=== PATIENT | female | born 1970 | race Caucasian/White ===

== ENCOUNTER 2016-12-25 15:43 | Outpatient (CLI) | payer OTHER | END 2016-12-25 15:44 | disposition home or self-care (01) | DX: R60.0 Localized edema (principal) ==

== ENCOUNTER 2021-08-13 11:17 | Inpatient (IN) | payer OTHER ==
[2021-08-13 11:45] LABS: BASOPHILS # (AUTO) 0.1 10^3/uL (0.0-0.1); BASOPHILS % (AUTO) 0.4 %; EOSINOPHILS % (AUTO) 0.1 %; HCT - HEMATOCRIT 46.6 % (37.0-47.0); HGB - HEMOGLOBIN 14.9 g/dL (12.0-16.0); LYMPHOCYTES # (AUTO) 2.7 10^3/uL (1.5-3.5); LYMPHOCYTES % (AUTO) 19.6 %; MEAN CORPUSCULAR HEMOGLOBIN 28.2 pg (27.0-31.0); MEAN CORPUSCULAR VOLUME 88.3 fL (81.0-99.0); MEAN PLATELET VOLUME 9.4 fL (7.9-10.8); MONOCYTES # (AUTO) 0.8 10^3/uL (0.0-1.0); MONOCYTES % (AUTO) 6.2 %; NEUTROPHILS % (AUTO) 73.4 %; PLT - PLATELET COUNT 340 10^3/uL (130-450); RED BLOOD COUNT 5.28 10^6/uL (4.20-5.40); RED CELL DISTRIBUTION WIDTH 14.8 % (12.0-15.0); WHITE BLOOD COUNT 13.6 x10^3/uL (4.8-10.8)
[2021-08-13 11:58] LABS: ALBUMIN 4.2 g/dL (3.2-5.5); ALBUMIN/GLOBULIN RATIO 1.1 (1.0-2.2); BILIRUBIN,TOTAL 0.7 mg/dL (0.2-1.0); CALCIUM 9.6 mg/dL (8.5-10.3); CREATININE 0.8 mg/dL (0.4-1.0); POTASSIUM 4.5 mmol/L (3.5-5.0)
[2021-08-13 12:14] LABS: BILIRUBIN,URINE NEGATIVE (NEGATIVE); GLUCOSE, URINE (UA) NEGATIVE (NEGATIVE); KETONES,URINE (UA) NEGATIVE (NEGATIVE); LEUKOCYTE ESTERASE, URINE TRACE (NEGATIVE); NITRITE,URINE NEGATIVE (NEGATIVE); OCCULT BLOOD,URINE NEGATIVE (NEGATIVE); PROTEIN,URINE TRACE mg/dL (NEGATIVE); UROBILINOGEN,URINE 0.2 (NORMAL) E.U./dL (NORMAL)
[2021-08-13] MEDS ORDERED: HYDROmorphone 1 MG/ML CARPUJECT IVP STA ×2 (12:18→14:29)
[2021-08-13] MEDS ORDERED: ONDANSETRON 4 MG/2 ML VIAL IVP STA ×2 (12:18→14:31)
[2021-08-13] MEDS ORDERED: SODIUM CHLORIDE 0.9% 1,000 ML IV STA ×2 (12:18→13:24)
[2021-08-13 12:20] LABS: CLARITY,URINE HAZY (CLEAR)
--- NOTE | 2021-08-13 12:21 | ED Physician Documentation ---
History of Present Illness - Stated complaint Stated Complaint: ABD PX/VOMITING - Chief complaint Chief Complaint: Abd Pain - Additonal information Additional information: 51-year-old female presents to the emergency department for evaluation of abdominal cramping and sharp pains. Reports that for at least 6 months that she gets cramping and pain in her abdomen especially she has not eaten. It is gotten progressively worse over the last few weeks. She will eat and then sometimes vomits. She reports that over the last 6 months she has gained about 60 pounds. Denies any history of diabetes. Past surgical history includes a mesh graft in her abdomen for a hernia repair. She denies hypertension tobacco use. Very rare alcohol use. Patient is traveling to [place] tomorrow and wants to know if it safe to travel. She takes an antidepressant as her only prescribed medication. Review of Systems Constitutional: denies: Fever, Chills, Weight Loss (60 pound weight gain) Eyes: reports: Reviewed and negative Nose: reports: Reviewed and negative Throat: reports: Reviewed and negative Cardiac: reports: Reviewed and negative Respiratory: reports: Reviewed and negative GI: reports: Abdominal Pain, Nausea, Vomiting. denies: Constipation, Diarrhea : reports: Reviewed and negative Skin: reports: Reviewed and negative PD PAST MEDICAL HISTORY - Allergies Allergies/Adverse Reactions: Allergies Allergy/AdvReac Type Severity Reaction Status Date / Time No Known Drug Allergies Allergy Verified 08/13/21 11:29 - Social History Does the pt smoke?: No Smoking Status: Never smoker PD ED PE EXPANDED - General General: Alert, No acute distress, Other (Morbidly obese) - Cardiac Cardiac: Regular Rate, Radial strong equal, Pedal strong equal, Cap refill < 2 sec. No: Murmur Present - Respiratory Respiratory: Clear to ausultation earnestine. No: Distress, Labored - Abdomen Abdomen: Tender to palpation (Tender to palpation in the right upper quadrant. No flank or CVA tenderness. Exam is limited by body habitus), Other (Patient has increased pain when laying supine). No: Rebound, Guarding - Derm Derm: Normal color, Warm and dry. No: Rash - Extremities Extremities: Normal. No: Deformity, Tenderness - Neuro Neuro: Alert and Oriented X 3, CNII-XII intact - GCS Eye Opening: Spontaneous Motor: Obeys Commands Verbal: Oriented Total: 15 Results - Vitals Vitals: Vital Signs - 24 hr 12/20/21 12/20/21 11:29 13:32 Temperature 36.5 C Heart Rate 89 78 Respiratory 16 19 Rate Blood Pressure 154/98 H 144/72 H O2 Saturation 94 98 Oxygen O2 Source Room air - Labs Labs: Laboratory Tests 08/13/21 08/13/21 08/13/21 11:40 11:40 11:40 WBC 13.6 H RBC 5.28 Hgb 14.9 Hct 46.6 MCV 88.3 MCH 28.2 MCHC 32.0 RDW 14.8 Plt Count 340 MPV 9.4 Neut # (Auto) 10.0 H Lymph # (Auto) 2.7 Emery # (Auto) 0.8 Eos # (Auto) 0.0 Baso # (Auto) 0.1 Absolute Nucleated RBC 0.00 Nucleated RBC % 0.0 Sodium 138 Potassium 4.5 Chloride 96 L Carbon Dioxide 28 Anion Gap 14.0 H BUN 15 Creatinine 0.8 Estimated GFR (MDRD) 75 L Glucose 134 H Calcium 9.6 Total Bilirubin 0.7 AST 25 ALT 20 Alkaline Phosphatase 94 Total Protein 8.0 Albumin 4.2 Globulin 3.8 Albumin/Globulin Ratio 1.1 Lipase 30 TSH 3.00 Urine Color Urine Clarity Urine pH Ur Specific [place] Urine Protein Urine Glucose (UA) Urine Ketones Urine Occult Blood Urine Nitrite Urine Bilirubin Urine Urobilinogen Ur Leukocyte Esterase Urine RBC Urine WBC Ur Squamous Epith Cells Urine Bacteria Urine Mucus Ur Microscopic Review Urine Culture Comments 08/13/21 12:00 WBC RBC Hgb Hct MCV MCH MCHC RDW Plt Count MPV Neut # (Auto) Lymph # (Auto) [place] # (Auto) Eos # (Auto) Baso # (Auto) Absolute Nucleated RBC Nucleated RBC % Sodium Potassium Chloride Carbon Dioxide Anion Gap BUN Creatinine Estimated GFR (MDRD) Glucose Calcium Total Bilirubin AST ALT Alkaline Phosphatase Total Protein Albumin Globulin Albumin/Globulin Ratio Lipase TSH Urine Color YELLOW Urine Clarity HAZY Urine pH 8.0 H Ur Specific [place] 1.020 Urine Protein TRACE Urine Glucose (UA) NEGATIVE Urine Ketones NEGATIVE Urine Occult Blood NEGATIVE Urine Nitrite NEGATIVE Urine Bilirubin NEGATIVE Urine Urobilinogen 0.2 (NORMAL) Ur Leukocyte Esterase TRACE H Urine RBC 0-5 Urine WBC 4-5 Ur Squamous Epith Cells MANY Squamous H Urine Bacteria Few Urine Mucus Few Strands Ur Microscopic Review INDICATED Urine Culture Comments NOT INDICATED - Rads (name of study) CT abd Radiology: Final report received (Small bowel obstruction. Proximal small bowel dilated to 3 and half centimeters, distal small bowel decompressed and focal transition in the anterior mid abdomen noted. Small hiatal hernia) PD MEDICAL DECISION MAKING - ED course Complexity details: reviewed results, re-evaluated patient, considered differential, d/w patient ED course: 51-year-old female presents to the emergency department for evaluation of worsening abdominal pain nausea and vomiting. Symptoms have been intermittent for about 6 months but acutely worse over the last 2 weeks. She reports that the pain gets especially severe if she has not eaten for a while. She is very tender when laying supine. She had screening labs that showed a very modest leukocytosis. No worrisome electrolyte abnormalities. A CT of the abdomen unfortunately shows a small bowel obstruction. This finding was discussed with Dr. Kimbrough who requested we place an NG tube. She will come and evaluate the patient. I discussed the plan and findings To warrant admission to the hospital with the patient. She is quite upset. She declines an NG tube. She believes that she cannot have a bowel obstruction as she has been having bowel movements. 1430: Patient seen by Dr. Ruffin. Patient now agrees to have an NG tube placed. I will order additional Dilaudid and Zofran for analgesia. Further care to be dictated by the surgical team. Departure - Departure Disposition: [facility] DC/Reba Clinical Impression: Small bowel obstruction
[2021-08-13] MEDS ORDERED: IOPAMIDOL-300 100 ML VIAL ONE (12:28)
[2021-08-13 12:31] LABS: BACTERIA,URINE Few /HPF (None Seen); MUCUS,URINE Few Strands; RBC,URINE 0-5 /HPF (0-5); SQUAMOUS EPITHELIAL CELL,UR MANY Squamous (<= Few)
[2021-08-13] MEDS ORDERED: IOPAMIDOL-300 100 ML VIAL IVP ONE (13:29)
--- NOTE | 2021-08-13 13:44 | CT Report ---
PROCEDURE: Abdomen/Pelvis W INDICATIONS: n/v; abd cramping;? alka CONTRAST: IV CONTRAST: Isovue 300 ml: 100 PO CONTRAST: Isovue 300 ml50 TECHNIQUE: After the administration of intravenous contrast, 5 mm thick sections acquired from the diaphragms to the symphysis. 5 mm thick coronal and sagittal reformats were acquired. For radiation dose reducti on, the following was used: automated exposure control, adjustment of mA and/or kV according to bernard ent size. COMPARISON: None. FINDINGS: Image quality: Excellent. ABDOMEN: Lung bases: Lung bases are clear. Heart size is normal. Small hiatal hernia noted. Solid organs: Liver and spleen are normal in size and enhancement. Gallbladder unremarkable. Bilia ry system is non dilated. Pancreas enhances normally. No adrenal nodules. Kidneys demonstrate norm al size and enhancement, without hydronephrosis. Peritoneum and bowel: Dilated proximal small bowel loops measuring up to 3.5 cm in diameter. Distal s mall bowel is completely decompressed, there is a focal transition noted in the anterior midabdomen, consistent with bowel obstruction. No evidence of bowel wall pneumatosis or free air. No free fluid. Nodes and vessels: No retroperitoneal or mesenteric adenopathy by size criteria. Aorta and inferior vena cava are normal in size. Miscellaneous: No ventral hernias. PELVIS: Genitourinary: Bladder wall thickness is normal. Miscellaneous: No inguinal hernias or adenopathy. Bones: No suspicious bony lesions. No vertebral body compression fractures. IMPRESSION: 1. Small bowel obstruction. Proximal small bowel dilated to 3.5 cm, distal small bowel decompressed, and focal transition in the anterior midabdomen noted. 2. Small hiatal hernia Reviewed by: Wilfredo May MD on 08/13/2021 12:43 PM [place] Approved by: Wilfredo May MD on 08/13/2021 12:43 PM [facility] Station ID: [id number]
--- NOTE | 2021-08-13 14:34 | SURGERY HX AND PHYSICAL(T) ---
Surgical History & Physical - Chief Complaint/HPI Chief Complaint: Abdominal pain and nausea History of Present Illness: Jaden is a 51-year-old lady who was in her usual state of health this morning when she developed severe abdominal pain in the midline right at the site of a prior hernia repair. She says that for the last 6 months she has had intermittent bouts of nausea and vomiting. She says these have been associated with a right upper quadrant cramping feeling but not with the tenderness that she currently appreciates. She has a history of having had a ventral hernia repair with mesh in the nineties. She experienced a small bowel obstruction following that procedure and some report of "popping a stitch".This was done at a hospital. At that time she had a very unpleasant experience with NG tube placement and so was very reticent to agree to NG tube placement today.She is also very hesitant to consider surgical intervention as she is scheduled to go to [place] tomorrow with her daughter.She tells me that she has a bowel movement every day and she had one in the middle of the night when she got up to go to the bathroom.The vomiting that she describes happens about once a week.She says that she has had a 60 pound weight gain in the last 6 months or so. She b lames this on Covid and being locked away. - PMH/PSH/Social Hx Does the pt have a hx of MRSA?: No Psychiatric: Depression General: Other (Ventral hernia repair in the nine) Smoking Status: Never smoker - Home Meds and Allergies Allergies/Adverse Reactions: Allergies Allergy/AdvReac Type Severity Reaction Status Date / Time No Known Drug Allergies Allergy Verified 08/13/21 11:29 - Review of Systems Constitutional: Fatigue Respiratory: No: Shortness of breath Gastrointestinal: Nausea, Vomiting, Abdominal pain. No: Diarrhea Gentinourinary: No: Dysuria - Vital Signs Heart Rate: 78 Blood Pressure: 144/72 Temperature: 36.5 C Respiratory Rate: 19 O2 Saturation: 98 Weight (kg): 147.5 kg Height: 1.78 m - Physical Exam General Appearance: positive: Alert, Mild distress Eyes Bilatera: positive: Normal inspection, PERRL, EOMI ENT: positive: ENT inspection nml Neck: positive: Nml inspection Respiratory: positive: Chest non-tender, No respiratory distress Cardiovascular: positive: Regular rate & rhythm Abdomen: positive: Tenderness, Other (Abdomen is rotund. In the midline there are multiple stab incisions consistent with history of mesh placement. This is in a little river roughly approximating the umbilicus.Tenderness to palpation directly over this site.The patient does not want to sit forward because she says it puts more pressure on). negative: Guarding, Rebound Skin: positive: Color nml Extremities: positive: Non-tender, No pedal edema Neurologic/Psychiatric: positive: Oriented x3 - Patient Review Patient Review: Problems were reviewed with the patient during this visit. Medications were reviewed with the patient during this visit. Allergies were reviewed this patient during this visit. Pertinent Tests Reviewed: All pertitent test for this patient were reviewed. - Assessment & Plan Assessment and Plan: PT NAME: TORSTEN PRATER MR#: [id number] REG ER/ED AGE: 51 CI DT/TM: 08/13/21 PCP: : 1970 ATT: SEX: F ORD: [facility] EXAM: [id number] CT/ABPEW ([id number]) PROCEDURE: Abdomen/Pelvis W INDICATIONS: n/v; abd cramping;? alka CONTRAST: IV CONTRAST: Isovue 300 ml: 100 PO CONTRAST: Isovue 300 ml50 TECHNIQUE: After the administration of intravenous contrast, 5 mm thick sections acquired from the diaphragms to the symphysis. 5 mm thick coronal and sagittal reformats were acquired. For radiation dose reduction, the following was used: automated exposure control, adjustment of mA and/or kV according to patient size. COMPARISON: None. FINDINGS: Image quality: Excellent. ABDOMEN: Lung bases: Lung bases are clear. Heart size is normal. Small hiatal hernia noted. Solid organs: Liver and spleen are normal in size and enhancement. Gallbladder unremarkable. Biliary system is non dilated. Pancreas enhances normally. No adrenal nodules. Kidneys demonstrate normal size and enhancement, without hydronephrosis. Peritoneum and bowel: Dilated proximal small bowel loops measuring up to 3.5 cm in diameter. Distal small bowel is completely decompressed, there is a focal transition noted in the anterior midabdomen, consistent with bowel obstruction. No evidence of bowel wall pneumatosis or free air. No free fluid. Nodes and vessels: No retroperitoneal or mesenteric adenopathy by size criteria. Aorta and inferior vena cava are normal in size. Miscellaneous: No ventral hernias. PELVIS: Genitourinary: Bladder wall thickness is normal. Miscellaneous: No inguinal hernias or adenopathy. Bones: No suspicious bony lesions. No vertebral body compression fractures. IMPRESSION: 1. Small bowel obstruction. Proximal small bowel dilated to 3.5 cm, distal small bowel decompressed, and focal transition in the anterior midabdomen noted. 2. Small hiatal hernia Lab Results x24hrs 08/13/21 08/13/21 08/13/21 12:00 11:40 11:40 WBC RBC Hgb Hct MCV MCH MCHC RDW Plt Count MPV Neut # (Auto) Lymph # (Auto) [place] # (Auto) Eos # (Auto) Baso # (Auto) Absolute Nucleated RBC Nucleated RBC % Sodium 138 mmol/L mmol/L (135-145) Potassium 4.5 mmol/L mmol/L (3.5-5.0) Chloride 96 mmol/L L mmol/L (101-111) Carbon Dioxide 28 mmol/L mmol/L (21-32) Anion Gap 14.0 H (6-13) BUN 15 mg/dL mg/dL (6-20) Creatinine 0.8 mg/dL mg/dL (0.4-1.0) Estimated GFR (MDRD) 75 L (>89) Glucose 134 mg/dL H mg/dL (70-100) Calcium 9.6 mg/dL mg/dL (8.5-10.3) Total Bilirubin 0.7 mg/dL mg/dL (0.2-1.0) AST 25 IU/L IU/L (10-42) ALT 20 IU/L IU/L (10-60) Alkaline Phosphatase 94 IU/L IU/L (42-121) Total Protein 8.0 g/dL g/dL (6.7-8.2) Albumin 4.2 g/dL g/dL (3.2-5.5) Globulin 3.8 g/dL g/dL (2.1-4.2) Albumin/Globulin Ratio 1.1 (1.0-2.2) Lipase 30 U/L U/L (22-51) TSH 3.00 uIU/mL uIU/mL (0.34-5.60) Urine Color YELLOW Urine Clarity HAZY (CLEAR) Urine pH 8.0 PH H PH (5.0-7.5) Ur Specific [place] 1.020 (1.002-1.030) Urine Protein TRACE mg/dL mg/dL (NEGATIVE) Urine Glucose (UA) NEGATIVE mg/dL mg/dL (NEGATIVE) Urine Ketones NEGATIVE mg/dL mg/dL (NEGATIVE) Urine Occult Blood NEGATIVE (NEGATIVE) Urine Nitrite NEGATIVE (NEGATIVE) Urine Bilirubin NEGATIVE (NEGATIVE) Urine Urobilinogen 0.2 (NORMAL) E.U./dL E.U./dL (NORMAL) Ur Leukocyte Esterase TRACE H (NEGATIVE) Urine RBC 0-5 /HPF /HPF (0-5) Urine WBC 4-5 /HPF /HPF (0-5) Ur Squamous Epith Cells MANY Squamous H (<= Few) Urine Bacteria Few /HPF /HPF (None Seen) Urine Mucus Few Strands Ur Microscopic Review INDICATED Urine Culture Comments NOT INDICATED 08/13/21 11:40 WBC 13.6 x10^3/uL H x10^3/uL (4.8-10.8) RBC 5.28 10^6/uL 10^6/uL (4.20-5.40) Hgb 14.9 g/dL g/dL (12.0-16.0) Hct 46.6 % % (37.0-47.0) MCV 88.3 fL fL (81.0-99.0) MCH 28.2 pg pg (27.0-31.0) MCHC 32.0 g/dL g/dL (32.0-36.0) RDW 14.8 % % (12.0-15.0) Plt Count 340 10^3/uL 10^3/uL (130-450) MPV 9.4 fL fL (7.9-10.8) Neut # (Auto) 10.0 10^3/uL H 10^3/uL (1.5-6.6) Lymph # (Auto) 2.7 10^3/uL 10^3/uL (1.5-3.5) Eagle # (Auto) 0.8 10^3/uL 10^3/uL (0.0-1.0) Eos # (Auto) 0.0 10^3/uL 10^3/uL (0.0-0.7) Baso # (Auto) 0.1 10^3/uL 10^3/uL (0.0-0.1) Absolute Nucleated RBC 0.00 x10^3/uL x10^3/uL Nucleated RBC % 0.0 /100WBC /100WBC Sodium Potassium Chloride Carbon Dioxide Anion Gap BUN Creatinine Estimated GFR (MDRD) Glucose Calcium Total Bilirubin AST ALT Alkaline Phosphatase Total Protein Albumin Globulin Albumin/Globulin Ratio Lipase TSH Urine Color Urine Clarity Urine pH Ur Specific [place] Urine Protein Urine Glucose (UA) Urine Ketones Urine Occult Blood Urine Nitrite Urine Bilirubin Urine Urobilinogen Ur Leukocyte Esterase Urine RBC Urine WBC Ur Squamous Epith Cells Urine Bacteria Urine Mucus Ur Microscopic Review Urine Culture Comments Small bowel obstruction in the setting of an obese lady with a past surgical history significant for open hernia repair with mesh. The CT shows multiple of bowel up against the existing mesh. In the setting of a mesh repair in the , I think there is a significant possibility she has loops of bowel adherent to the mesh. I have recommended conservative management and NGT decompression. If she is not improved in the AM, I would recommend Gastrograffin challenge with KUB. She is averse to the idea of surgery. Hopefully, this will resolve without surgical intervention. She may be well served to [place], perhaps the hernia clinic, regarding her symptoms of intermittent obstruction.
[2021-08-13] MEDS ORDERED: ONDANSETRON 4 MG/2 ML VIAL IVP PRN (15:05)
[2021-08-13] MEDS ORDERED: HYDROmorphone 0.5 MG/0.5 ML SYRINGE IVP PRN (15:40)
[2021-08-13] MEDS: SODIUM CHLORIDE 0.9% 1,000 ML IV SCH (16:20)
[2021-08-13] MEDS: SODIUM CHLORIDE FLUSH 0.9% 10 ML SYRINGE IVP SCH (16:22)
[2021-08-13] MEDS: PHENOL THROAT SPRAY 177 ML MM PRN (16:31)
[2021-08-13 16:36] LABS: B. PARAPERTUSSIS- RESP PCR PAN NOT DETECTED; B. PERTUSSIS- RESP PCR PANEL NOT DETECTED; C. PNEUMONIAE- RESP PCR PANEL NOT DETECTED; CORONAVIRUS 229E-RESP PCR NOT DETECTED; CORONAVIRUS HKU1-RESP PCR NOT DETECTED; CORONAVIRUS NL63-RESP PCR NOT DETECTED; CORONAVIRUS OC43-RESP PCR NOT DETECTED; HUMAN METAPNEUMOVIRUS NOT DETECTED; INFLUENZA A- RESP PCR PANEL NOT DETECTED; INFLUENZA B - RESP PCR PANEL NOT DETECTED; M. PNEUMONIAE- RESP PCR PANEL NOT DETECTED; PARAINFLUENZA VIRUS 1 NOT DETECTED; PARAINFLUENZA VIRUS 2 NOT DETECTED; PARAINFLUENZA VIRUS 3 NOT DETECTED; PARAINFLUENZA VIRUS 4 NOT DETECTED; RHINOVIRUS/ENTEROVIRUS NOT DETECTED; RSV- RESP PCR PANEL NOT DETECTED; SARS-CoV-2 -RESP PCR PANEL NOT DETECTED
--- NOTE | 2021-08-13 17:22 | XRAY Report ---
PROCEDURE: Chest for Line Placement INDICATIONS: check for line placement COMMENTS: Check for line placement, NG tube PRIORS: none TECHNIQUE: One view of the chest was acquired. COMPARISON: None FINDINGS: Surgical changes and devices: Nasogastric tube has been placed and the tip of the nasogastric tube i s in the stomach. Lungs and pleura: No pleural effusions or pneumothorax. Lungs are clear. Mediastinum: Mediastinal contours appear normal. Heart size is normal. Bones and chest wall: No suspicious bony lesions. Overlying soft tissues appear unremarkable. IMPRESSION: 1. Nasogastric tube is well positioned. 2. No acute cardiopulmonary abnormality. Reviewed by: Chi Bruner on 08/13/2021 4:21 PM [facility] Approved by: Chi Bruner on 08/13/2021 4:21 PM [facility] Station ID: [id number]
[2021-08-13 20:11] LABS: BILIRUBIN,URINE NEGATIVE (NEGATIVE); GLUCOSE, URINE (UA) NEGATIVE (NEGATIVE); KETONES,URINE (UA) NEGATIVE (NEGATIVE); LEUKOCYTE ESTERASE, URINE NEGATIVE (NEGATIVE); NITRITE,URINE NEGATIVE (NEGATIVE); OCCULT BLOOD,URINE NEGATIVE (NEGATIVE); PH,URINE 6.5 PH (5.0-7.5); PROTEIN,URINE NEGATIVE (NEGATIVE); UROBILINOGEN,URINE 0.2 (NORMAL) E.U./dL (NORMAL)
[2021-08-13 20:22] LABS: CLARITY,URINE CLEAR (CLEAR)
[2021-08-13] MEDS ORDERED: LORazepam 2 MG/ML VIAL IVP PRN (21:18)
[2021-08-14] MEDS: SODIUM CHLORIDE 0.9% 1,000 ML IV SCH ×3 (02:08→23:45)
[2021-08-14] MEDS: PHENOL THROAT SPRAY 177 ML MM PRN (02:10)
[2021-08-14] MEDS: SODIUM CHLORIDE FLUSH 0.9% 10 ML SYRINGE IVP SCH ×3 (02:12→17:15)
[2021-08-14] MEDS: PANTOPRAZOLE 40 MG VIAL IVP SCH (06:05)
[2021-08-14 06:11] LABS: BASOPHILS % (AUTO) 0.4 %; EOSINOPHILS # (AUTO) 0.3 10^3/uL (0.0-0.7); EOSINOPHILS % (AUTO) 3.2 %; HCT - HEMATOCRIT 40.3 % (37.0-47.0); HGB - HEMOGLOBIN 12.5 g/dL (12.0-16.0); LYMPHOCYTES # (AUTO) 2.7 10^3/uL (1.5-3.5); LYMPHOCYTES % (AUTO) 25.9 %; MEAN CORPUSCULAR HEMOGLOBIN 28.4 pg (27.0-31.0); MEAN CORPUSCULAR VOLUME 91.6 fL (81.0-99.0); MEAN PLATELET VOLUME 9.7 fL (7.9-10.8); MONOCYTES # (AUTO) 1.3 10^3/uL (0.0-1.0); MONOCYTES % (AUTO) 11.9 %; NEUTROPHILS # (AUTO) 6.2 10^3/uL (1.5-6.6); NEUTROPHILS % (AUTO) 58.4 %; PLT - PLATELET COUNT 316 10^3/uL (130-450); RED CELL DISTRIBUTION WIDTH 15.1 % (12.0-15.0); WHITE BLOOD COUNT 10.5 x10^3/uL (4.8-10.8)
[2021-08-14 06:26] LABS: ALBUMIN 3.5 g/dL (3.2-5.5); ALBUMIN/GLOBULIN RATIO 1.1 (1.0-2.2); BILIRUBIN,TOTAL 0.4 mg/dL (0.2-1.0); CALCIUM 8.1 mg/dL (8.5-10.3); CREATININE 0.8 mg/dL (0.4-1.0); POTASSIUM 3.7 mmol/L (3.5-5.0); TOTAL PROTEIN 6.6 g/dL (6.7-8.2)
[2021-08-14] MEDS: ENOXAPARIN 40 MG/0.4 ML SYRINGE SUBQ SCH (10:27)
--- NOTE | 2021-08-14 11:28 | PHARMACY PROGRESS NOTE ---
- Best Possible Medication History Admit Date and Time: 08/13/21 1629 Processed by: Pharmacy Medication History completed: Yes Patient Interview: Completed As the person ultimately responsible for medication therapy, providers are able to order a medication from an existing home medication list in [facility] via the "Reconcile Routine" prior to Confirmation of that medication by user support specialist. Such practice is discouraged except when the physician, in their clinical dorothy gment, deems that a medical need exists for a medication without regard to previous use.
--- NOTE | 2021-08-14 12:52 | PROVIDER PROGRESS NOTE ---
Subjective - General Admit Date: 08/13/21 Procedure Performed: Inpatient observation - Review of Systems General: positive: No symptoms HEENT: positive: No symptoms Pulmonary: positive: No symptoms Cardiovascular: positive: No symptoms Gastrointestinal: positive: Abdominal pain, Other (Reports three episodes of cramping.). negative: Nausea, Vomiting Genitourinary: positive: No symptoms Musculoskeletal: positive: No symptoms Skin: positive: No symptoms - Other Other Information/Narrative: Jaden is feeling a little bit better this morning. She tells me that she had one dose of pain medicine yesterday and she did not like the way it made her feel. She has not had any more since then. She is comfortable lying on her back now and she says that is much improved from yesterday. She is not having any nausea. She describes 3 episodes of is sharp cramping pains right around her hernia repair site since last evening.Her bili is raw stock drier tender but she thinks is much better than it was yesterday. Objective - Patient Data Reviewed Vital Signs: Yes Vital Signs: Vital Signs x48h Temp Pulse Resp BP Pulse Ox 08/14/21 12:45 37.2 C 62 14 115/67 94 08/14/21 07:30 37.2 C 73 18 123/55 L 90 L Weight: Weight 08/12/21 08/13/21 08/14/21 23:59 23:59 23:59 Weight (kg) 144 kg Intake & Output: Intake and Output Totals x24h 08/12/21 08/13/21 08/14/21 23:59 23:59 23:59 Intake Total 2029 2100 Output Total 1075 Balance 2029 1025 - Lab Results Lab Results: 08/14/21 05:35 08/14/21 05:35 Other Lab Results: Lab Results x24hrs 08/14/21 08/14/21 08/13/21 Range/Units 05:35 05:35 19:20 WBC 10.5 (4.8-10.8) x10^3/uL RBC 4.40 (4.20-5.40) 10^6/uL Hgb 12.5 (12.0-16.0) g/dL Hct 40.3 (37.0-47.0) % MCV 91.6 (81.0-99.0) fL MCH 28.4 (27.0-31.0) pg MCHC 31.0 L (32.0-36.0) g/dL RDW 15.1 H (12.0-15.0) % Plt Count 316 (130-450) 10^3/uL MPV 9.7 (7.9-10.8) fL Neut # (Auto) 6.2 (1.5-6.6) 10^3/uL Lymph # (Auto) 2.7 (1.5-3.5) 10^3/uL [place] # (Auto) 1.3 H (0.0-1.0) 10^3/uL Eos # (Auto) 0.3 (0.0-0.7) 10^3/uL Baso # (Auto) 0.0 (0.0-0.1) 10^3/uL Absolute Nucleated RBC 0.00 x10^3/uL Nucleated RBC % 0.0 /100WBC Sodium 139 (135-145) mmol/L Potassium 3.7 (3.5-5.0) mmol/L Chloride 99 L (101-111) mmol/L Carbon Dioxide 31 (21-32) mmol/L Anion Gap 9.0 (6-13) BUN 15 (6-20) mg/dL Creatinine 0.8 (0.4-1.0) mg/dL Estimated GFR (MDRD) 75 L (>89) Glucose 109 H (70-100) mg/dL Calcium 8.1 L (8.5-10.3) mg/dL Total Bilirubin 0.4 (0.2-1.0) mg/dL AST 16 (10-42) IU/L ALT 15 (10-60) IU/L Alkaline Phosphatase 69 (42-121) IU/L Total Protein 6.6 L (6.7-8.2) g/dL Albumin 3.5 (3.2-5.5) g/dL Globulin 3.1 (2.1-4.2) g/dL Albumin/Globulin Ratio 1.1 (1.0-2.2) TSH (0.34-5.60) uIU/mL Urine Color YELLOW Urine Clarity CLEAR (CLEAR) Urine pH 6.5 (5.0-7.5) PH Ur Specific [place] 1.015 (1.002-1.030) Urine Protein NEGATIVE (NEGATIVE) mg/dL Urine Glucose (UA) NEGATIVE (NEGATIVE) mg/dL Urine Ketones NEGATIVE (NEGATIVE) mg/dL Urine Occult Blood NEGATIVE (NEGATIVE) Urine Nitrite NEGATIVE (NEGATIVE) Urine Bilirubin NEGATIVE (NEGATIVE) Urine Urobilinogen 0.2 (NORMAL) (NORMAL) E.U./dL Ur Leukocyte Esterase NEGATIVE (NEGATIVE) Ur Microscopic Review NOT INDICATED Urine Culture Comments NOT INDICATED Nasal Adenovirus (PCR) Nasal B. parapertussis DNA (PCR) Nasal Coronavir 229E PCR Nasal Coronavir HKU1 PCR Nasal Coronavir NL63 PCR Nasal Coronavir OC43 PCR Nasal Enterovir/Rhinovir PCR Nasal Influenza B PCR Nasal Influenza A PCR Nasal Parainfluen 1 PCR Nasal Parainfluen 2 PCR Nasal Parainfluen 3 PCR Nasal Parainfluen 4 PCR Nasal RSV (PCR) Nasal B.pertussis DNA PCR Nasal C.pneumoniae (PCR) [place] Human Metapneumo PCR Nasal M.pneumoniae (PCR) Nasal SARS-CoV-2 (PCR) 08/13/21 08/13/21 Range/Units 14:29 11:40 WBC (4.8-10.8) x10^3/uL RBC (4.20-5.40) 10^6/uL Hgb (12.0-16.0) g/dL Hct (37.0-47.0) % MCV (81.0-99.0) fL MCH (27.0-31.0) pg MCHC (32.0-36.0) g/dL RDW (12.0-15.0) % Plt Count (130-450) 10^3/uL MPV (7.9-10.8) fL Neut # (Auto) (1.5-6.6) 10^3/uL Lymph # (Auto) (1.5-3.5) 10^3/uL [place] # (Auto) (0.0-1.0) 10^3/uL Eos # (Auto) (0.0-0.7) 10^3/uL Baso # (Auto) (0.0-0.1) 10^3/uL Absolute Nucleated RBC x10^3/uL Nucleated RBC % /100WBC Sodium (135-145) mmol/L Potassium (3.5-5.0) mmol/L Chloride (101-111) mmol/L Carbon Dioxide (21-32) mmol/L Anion Gap (6-13) BUN (6-20) mg/dL Creatinine (0.4-1.0) mg/dL Estimated GFR (MDRD) (>89) Glucose (70-100) mg/dL Calcium (8.5-10.3) mg/dL Total Bilirubin (0.2-1.0) mg/dL AST (10-42) IU/L ALT (10-60) IU/L Alkaline Phosphatase (42-121) IU/L Total Protein (6.7-8.2) g/dL Albumin (3.2-5.5) g/dL Globulin (2.1-4.2) g/dL Albumin/Globulin Ratio (1.0-2.2) TSH 3.00 (0.34-5.60) uIU/mL Urine Color Urine Clarity (CLEAR) Urine pH (5.0-7.5) PH Ur Specific [place] (1.002-1.030) Urine Protein (NEGATIVE) mg/dL Urine Glucose (UA) (NEGATIVE) mg/dL Urine Ketones (NEGATIVE) mg/dL Urine Occult Blood (NEGATIVE) Urine Nitrite (NEGATIVE) Urine Bilirubin (NEGATIVE) Urine Urobilinogen (NORMAL) E.U./dL Ur Leukocyte Esterase (NEGATIVE) Ur Microscopic Review Urine Culture Comments Nasal Adenovirus (PCR) NOT DETECTED Nasal B. parapertussis DNA (PCR) NOT DETECTED Nasal Coronavir 229E PCR NOT DETECTED Nasal Coronavir HKU1 PCR NOT DETECTED Nasal Coronavir NL63 PCR NOT DETECTED Nasal Coronavir OC43 PCR NOT DETECTED Nasal Enterovir/Rhinovir PCR NOT DETECTED Nasal Influenza B PCR NOT DETECTED Nasal Influenza A PCR NOT DETECTED Nasal Parainfluen 1 PCR NOT DETECTED Nasal Parainfluen 2 PCR NOT DETECTED Nasal Parainfluen 3 PCR NOT DETECTED Nasal Parainfluen 4 PCR NOT DETECTED Nasal RSV (PCR) NOT DETECTED Nasal B.pertussis DNA PCR NOT DETECTED Nasal C.pneumoniae (PCR) NOT DETECTED [place] Human Metapneumo PCR NOT DETECTED Nasal M.pneumoniae (PCR) NOT DETECTED Nasal SARS-CoV-2 (PCR) NOT DETECTED - Current Medications Current Medications: Current Medications Generic Name Dose Route Start Last Admin Trade Name Freq PRN Reason Stop Dose Admin Enoxaparin Sodium 40 mg 08/14/21 09:00 08/14/21 10:27 Enoxaparin 40 Mg/0.4 Ml Syringe SUBQ Not Given DAILY [facility] Sodium Chloride 1,000 mls @ 100 mls/hr 08/13/21 16:30 08/14/21 12:26 Normal Saline 0.9% IV 100 mls/hr .Q10H DYLON Administration Pantoprazole Sodium 40 mg 08/14/21 07:00 08/14/21 06:05 Pantoprazole 40 Mg Vial IVP 40 mg QDAC DYLON Administration Phenol/Menthol 1 sprays 08/13/21 15:05 08/14/21 02:10 Phenol Throat [place] 177 Ml MM 1 sprays Q2HR PRN Administration Throat Pain Sodium Chloride 10 ml 08/13/21 17:00 08/14/21 10:27 Sodium Chloride Flush 0.9% 10 Ml Syringe IVP Not Given 0100,0900,1700 [facility] - Physical Exam General Appearance: positive: No acute distress Respiratory: positive: No respiratory distress Cardiovascular: positive: Regular rate & rhythm Abdomen: positive: Tenderness. negative: Guarding, Rebound Rectal: positive: Other (Abdomen is soft and mildly tender to palpation right around the existing hernia repair.Active bowel sounds.) Comments/Other: NG tube output has been significant.More than 1200 cc since it was placed yesterday. ABX Reporting Has patient been on IV antibiotics over the past 48 hours?: No Impression/Plan - Problem List Problem List: Small bowel obstruction in the setting of a 51-year-old lady who had a hernia repair with mesh about 20 years ago. In the interim, she has gained a significant amount of weight. She reports that after her hernia repair she experienced a suture pop and then had a small bowel obstruction.This was treated conservatively and resolved. We talked today about the likelihood that if she has to have this hernia repaired it is going to involve bowel resection. I do not feel she is a good candidate for surgery at our facility if we have any choice at all.Going to continue conservative management as it seems to be improving the situation. If we are able to get past this episode, I would like to refer her to the [facility] hernia center for evaluation for her chronic intermittent obstructive pattern.Continue n.p.o. with NG tube decompression. She can have ice chips and popsicles.We will follow clinically.
[2021-08-14] MEDS: SODIUM CHLORIDE FLUSH 0.9% 10 ML SYRINGE IVP PRN (18:02)
[2021-08-15] MEDS: SODIUM CHLORIDE FLUSH 0.9% 10 ML SYRINGE IVP SCH ×3 (01:16→17:29)
[2021-08-15] MEDS: PANTOPRAZOLE 40 MG VIAL IVP SCH (07:04)
[2021-08-15] MEDS: ENOXAPARIN 40 MG/0.4 ML SYRINGE SUBQ SCH (08:39)
[2021-08-15] MEDS: SODIUM CHLORIDE 0.9% 1,000 ML IV SCH ×2 (08:40→18:15)
[2021-08-15 09:18] LABS: BASOPHILS # (AUTO) 0.1 10^3/uL (0.0-0.1); BASOPHILS % (AUTO) 0.6 %; EOSINOPHILS # (AUTO) 0.2 10^3/uL (0.0-0.7); EOSINOPHILS % (AUTO) 2.4 %; HCT - HEMATOCRIT 39.5 % (37.0-47.0); HGB - HEMOGLOBIN 12.1 g/dL (12.0-16.0); LYMPHOCYTES % (AUTO) 30.8 %; MEAN CORPUSCULAR HEMOGLOBIN 27.9 pg (27.0-31.0); MEAN CORPUSCULAR HGB CONC 30.6 g/dL (32.0-36.0); MEAN CORPUSCULAR VOLUME 91.2 fL (81.0-99.0); MEAN PLATELET VOLUME 9.6 fL (7.9-10.8); MONOCYTES % (AUTO) 10.6 %; NEUTROPHILS # (AUTO) 5.3 10^3/uL (1.5-6.6); NEUTROPHILS % (AUTO) 55.5 %; PLT - PLATELET COUNT 281 10^3/uL (130-450); RED BLOOD COUNT 4.33 10^6/uL (4.20-5.40); WHITE BLOOD COUNT 9.6 x10^3/uL (4.8-10.8)
[2021-08-15 09:29] LABS: ALBUMIN 3.6 g/dL (3.2-5.5); ALBUMIN/GLOBULIN RATIO 1.2 (1.0-2.2); BILIRUBIN,TOTAL 0.8 mg/dL (0.2-1.0); CALCIUM 8.3 mg/dL (8.5-10.3); CREATININE 0.7 mg/dL (0.4-1.0); POTASSIUM 3.7 mmol/L (3.5-5.0); TOTAL PROTEIN 6.7 g/dL (6.7-8.2)
--- NOTE | 2021-08-15 10:36 | PROVIDER PROGRESS NOTE ---
Subjective - General Admit Date: 08/13/21 Procedure Performed: Inpatient observation - Review of Systems General: positive: No symptoms HEENT: positive: No symptoms Pulmonary: positive: No symptoms Cardiovascular: positive: No symptoms Gastrointestinal: positive: Abdominal pain, Other (Reports three episodes of cramping.). negative: Nausea, Vomiting Genitourinary: positive: No symptoms Musculoskeletal: positive: No symptoms Skin: positive: No symptoms - Other Other Information/Narrative: Jaden report that states she thinks she feels a little bit better today. She is comfortable moving around in her room and walking as well as sitting in a chair. The tight feeling she did have when she leans back that caused her to need to sit up all the time has resolved. In general she is more comfortable sitting up but this is a always situation and not just related to this bowel obstruction.She tells me that she is not had had any more strong episodes of cramping. She says she feels sort of background cramping at times but nothing that is strong. She does not desire any pain medication.She has not passed any gas. She has been able to eat some popsicles which has improved her tolerance of her NG tube significantly. Output overnight was about 500 cc, actually over the last 24 hours.She tells me that she feels a difference in cramping and obstruction symptoms depending on which side she lies on on her left side she seems to have more symptoms than when she lies on her right. Objective - Patient Data Reviewed Vital Signs: Yes Vital Signs: Vital Signs x48h Temp Pulse Resp BP Pulse Ox 08/15/21 07:46 37.2 C 71 19 128/74 92 08/15/21 04:06 36.4 C L 57 L 18 139/73 H 94 Weight: Weight 08/13/21 08/14/21 08/15/21 23:59 23:59 23:59 Weight (kg) 144 kg Intake & Output: Intake and Output Totals x24h 08/13/21 08/14/21 08/15/21 23:59 23:59 23:59 Intake Total 2029 3704.000 1356.667 Output Total 2175 625 Balance 2029 1529.000 731.667 - Lab Results Lab Results: 08/15/21 09:13 08/15/21 09:13 Other Lab Results: Lab Results x24hrs 08/15/21 08/15/21 Range/Units 09:13 09:13 WBC 9.6 (4.8-10.8) x10^3/uL RBC 4.33 (4.20-5.40) 10^6/uL Hgb 12.1 (12.0-16.0) g/dL Hct 39.5 (37.0-47.0) % MCV 91.2 (81.0-99.0) fL MCH 27.9 (27.0-31.0) pg MCHC 30.6 L (32.0-36.0) g/dL RDW 15.0 (12.0-15.0) % Plt Count 281 (130-450) 10^3/uL MPV 9.6 (7.9-10.8) fL Neut # (Auto) 5.3 (1.5-6.6) 10^3/uL Lymph # (Auto) 3.0 (1.5-3.5) 10^3/uL [place] # (Auto) 1.0 (0.0-1.0) 10^3/uL Eos # (Auto) 0.2 (0.0-0.7) 10^3/uL Baso # (Auto) 0.1 (0.0-0.1) 10^3/uL Absolute Nucleated RBC 0.00 x10^3/uL Nucleated RBC % 0.0 /100WBC Sodium 142 (135-145) mmol/L Potassium 3.7 (3.5-5.0) mmol/L Chloride 101 (101-111) mmol/L Carbon Dioxide 28 (21-32) mmol/L Anion Gap 13.0 (6-13) BUN 13 (6-20) mg/dL Creatinine 0.7 (0.4-1.0) mg/dL Estimated GFR (MDRD) 88 L (>89) Glucose 106 H (70-100) mg/dL Calcium 8.3 L (8.5-10.3) mg/dL Total Bilirubin 0.8 (0.2-1.0) mg/dL AST 17 (10-42) IU/L ALT 15 (10-60) IU/L Alkaline Phosphatase 63 (42-121) IU/L Total Protein 6.7 (6.7-8.2) g/dL Albumin 3.6 (3.2-5.5) g/dL Globulin 3.1 (2.1-4.2) g/dL Albumin/Globulin Ratio 1.2 (1.0-2.2) - Current Medications Current Medications: Current Medications Generic Name Dose Route Start Last Admin Trade Name Freq PRN Reason Stop Dose Admin Enoxaparin Sodium 40 mg 08/14/21 09:00 08/15/21 08:39 Enoxaparin 40 Mg/0.4 Ml Syringe SUBQ 40 mg DAILY DYLON Administration Sodium Chloride 1,000 mls @ 100 mls/hr 08/13/21 16:30 08/15/21 08:40 Normal Saline 0.9% IV 100 mls/hr .Q10H DYLON Administration Pantoprazole Sodium 40 mg 08/14/21 07:00 08/15/21 07:04 Pantoprazole 40 Mg Vial IVP 40 mg QDAC DYLON Administration Phenol/Menthol 1 sprays 08/13/21 15:05 08/14/21 02:10 Phenol Throat [place] 177 Ml MM 1 sprays Q2HR PRN Administration Throat Pain Sodium Chloride 10 ml 08/13/21 17:00 08/15/21 08:40 Sodium Chloride Flush 0.9% 10 Ml Syringe IVP 10 ml 0100,0900,1700 DYLON Administration Sodium Chloride 10 ml 08/13/21 15:05 08/14/21 18:02 Sodium Chloride Flush 0.9% 10 Ml Syringe IVP 10 ml PRN PRN Administration NEEDED PER PROVIDER ORDERS - Physical Exam General Appearance: positive: No acute distress, Alert Eyes Bilateral: positive: Normal inspection, PERRL, EOMI ENT: positive: ENT inspection nml Neck: positive: Nml inspection Respiratory: positive: Chest non-tender, No respiratory distress Cardiovascular: positive: Regular rate & rhythm Abdomen: positive: Tenderness, Other (Much less tender on today's exam than before.She does have active bowel sounds. More tender on her left lateral side than on her right. She tells me she could make her self cry if she pushed in the right direction but she is not trying to make anything worse.). negative: Guarding, Rebound Neurologic/Psychiatric: positive: Oriented x3 ABX Reporting Has patient been on IV antibiotics over the past 48 hours?: No Impression/Plan - Problem List Problem List: Small bowel obstruction. Improving. We will continue watchful waiting and supportive care. She is going to get up and walk in the halls today and see if that helps get things moving around. She has improved a little bit each day and so there is a significant possibility that she will resolve without surgery this time. As stated before, I think she should be referred to the [facility] hernia center for evaluation regarding her recurrent symptoms of obstruction.
[2021-08-16] MEDS: SODIUM CHLORIDE FLUSH 0.9% 10 ML SYRINGE IVP SCH ×3 (02:25→17:06)
[2021-08-16] MEDS: SODIUM CHLORIDE 0.9% 1,000 ML IV SCH ×2 (03:53→13:29)
[2021-08-16] MEDS: PANTOPRAZOLE 40 MG VIAL IVP SCH (07:32)
[2021-08-16] MEDS: SODIUM CHLORIDE FLUSH 0.9% 10 ML SYRINGE IVP PRN (07:32)
[2021-08-16 07:37] LABS: BASOPHILS # (AUTO) 0.1 10^3/uL (0.0-0.1); BASOPHILS % (AUTO) 0.5 %; EOSINOPHILS # (AUTO) 0.3 10^3/uL (0.0-0.7); EOSINOPHILS % (AUTO) 3.2 %; HCT - HEMATOCRIT 38.8 % (37.0-47.0); HGB - HEMOGLOBIN 12.1 g/dL (12.0-16.0); LYMPHOCYTES # (AUTO) 2.7 10^3/uL (1.5-3.5); LYMPHOCYTES % (AUTO) 28.3 %; MEAN CORPUSCULAR HEMOGLOBIN 28.1 pg (27.0-31.0); MEAN CORPUSCULAR HGB CONC 31.2 g/dL (32.0-36.0); MEAN CORPUSCULAR VOLUME 90.2 fL (81.0-99.0); MEAN PLATELET VOLUME 9.6 fL (7.9-10.8); MONOCYTES # (AUTO) 0.9 10^3/uL (0.0-1.0); MONOCYTES % (AUTO) 9.6 %; NEUTROPHILS # (AUTO) 5.5 10^3/uL (1.5-6.6); NEUTROPHILS % (AUTO) 58.1 %; PLT - PLATELET COUNT 283 10^3/uL (130-450); RED CELL DISTRIBUTION WIDTH 14.8 % (12.0-15.0); WHITE BLOOD COUNT 9.5 x10^3/uL (4.8-10.8)
[2021-08-16 07:49] LABS: ALBUMIN 3.4 g/dL (3.2-5.5); ALBUMIN/GLOBULIN RATIO 1.1 (1.0-2.2); BILIRUBIN,TOTAL 0.6 mg/dL (0.2-1.0); CREATININE 0.7 mg/dL (0.4-1.0); POTASSIUM 3.5 mmol/L (3.5-5.0); TOTAL PROTEIN 6.5 g/dL (6.7-8.2)
[2021-08-16] MEDS: ENOXAPARIN 40 MG/0.4 ML SYRINGE SUBQ SCH (11:12)
[2021-08-16 12:59] LABS: ESTIMATED AVERAGE GLUCOSE 123 mg/dL (70-100); HEMOGLOBIN A1c% 5.9 % (4.27-6.07)
--- NOTE | 2021-08-16 17:07 | PROVIDER PROGRESS NOTE ---
Subjective - Prog Note Date Prog Note Date: 08/16/21 - Subjective Pt reports feeling: Improved (passing gas and having bm. denies nausea) Objective - Vital Signs/Intake & Output Reviewed Vital Signs: Yes Vital Signs: Vital Signs x48h Temp Pulse Resp BP Pulse Ox 08/16/21 15:56 37.4 C 58 L 16 137/73 H 95 08/16/21 13:00 37.3 C 57 L 16 131/85 H 98 Intake & Output: Intake & Output 08/13/21 08/14/21 08/15/21 08/16/21 23:59 23:59 23:59 23:59 Intake Total 2029 3704.000 2891.000 2203.333 Output Total 2175 1550 600 Balance 2029 3695.255 7525.000 1603.333 - Objective General Appearance: positive: No acute distress, Alert Eyes Bilateral: positive: EOMI Respiratory: positive: No respiratory distress Abdomen: positive: Non-tender, No distention Neurologic/Psychiatric: positive: Oriented x3 - Lab Results Fish Bones: 08/16/21 07:29 08/16/21 07:29 Other Labs: Lab Results x24hrs 08/16/21 08/16/21 08/16/21 Range/Units 07:29 07:29 07:29 WBC 9.5 (4.8-10.8) x10^3/uL RBC 4.30 (4.20-5.40) 10^6/uL Hgb 12.1 (12.0-16.0) g/dL Hct 38.8 (37.0-47.0) % MCV 90.2 (81.0-99.0) fL MCH 28.1 (27.0-31.0) pg MCHC 31.2 L (32.0-36.0) g/dL RDW 14.8 (12.0-15.0) % Plt Count 283 (130-450) 10^3/uL MPV 9.6 (7.9-10.8) fL Neut # (Auto) 5.5 (1.5-6.6) 10^3/uL Lymph # (Auto) 2.7 (1.5-3.5) 10^3/uL [place] # (Auto) 0.9 (0.0-1.0) 10^3/uL Eos # (Auto) 0.3 (0.0-0.7) 10^3/uL Baso # (Auto) 0.1 (0.0-0.1) 10^3/uL Absolute Nucleated RBC 0.00 x10^3/uL Nucleated RBC % 0.0 /100WBC Sodium 136 (135-145) mmol/L Potassium 3.5 (3.5-5.0) mmol/L Chloride 100 L (101-111) mmol/L Carbon Dioxide 28 (21-32) mmol/L Anion Gap 8.0 (6-13) BUN 8 (6-20) mg/dL Creatinine 0.7 (0.4-1.0) mg/dL Estimated GFR (MDRD) 88 L (>89) Glucose 95 (70-100) mg/dL Estimat Average Glucose 123 H (70-100) mg/dL Hemoglobin A1c % 5.9 (4.27-6.07) % Calcium 8.0 L (8.5-10.3) mg/dL Total Bilirubin 0.6 (0.2-1.0) mg/dL AST 18 (10-42) IU/L ALT 18 (10-60) IU/L Alkaline Phosphatase 61 (42-121) IU/L Total Protein 6.5 L (6.7-8.2) g/dL Albumin 3.4 (3.2-5.5) g/dL Globulin 3.1 (2.1-4.2) g/dL Albumin/Globulin Ratio 1.1 (1.0-2.2) Assessment/Plan - Problem List (1) Small bowel obstruction Impression: much improved. passing gas and bm today essentially normal abdominal exam ng tube output much decreased and no thin yellow I will order d/c ngt. recommend continue small volume clears for now and if not having nausea, cramping discomfort she may advance to clears ad matias tomorrow
[2021-08-17] MEDS: SODIUM CHLORIDE FLUSH 0.9% 10 ML SYRINGE IVP SCH ×3 (01:08→16:18)
[2021-08-17] MEDS: SODIUM CHLORIDE 0.9% 1,000 ML IV SCH ×3 (01:08→21:05)
[2021-08-17 05:39] LABS: BASOPHILS # (AUTO) 0.1 10^3/uL (0.0-0.1); BASOPHILS % (AUTO) 0.6 %; EOSINOPHILS # (AUTO) 0.3 10^3/uL (0.0-0.7); EOSINOPHILS % (AUTO) 2.4 %; HGB - HEMOGLOBIN 11.9 g/dL (12.0-16.0); LYMPHOCYTES # (AUTO) 2.6 10^3/uL (1.5-3.5); LYMPHOCYTES % (AUTO) 24.2 %; MEAN CORPUSCULAR HEMOGLOBIN 27.6 pg (27.0-31.0); MEAN CORPUSCULAR HGB CONC 31.3 g/dL (32.0-36.0); MEAN CORPUSCULAR VOLUME 88.2 fL (81.0-99.0); MEAN PLATELET VOLUME 9.8 fL (7.9-10.8); MONOCYTES # (AUTO) 1.1 10^3/uL (0.0-1.0); MONOCYTES % (AUTO) 10.3 %; NEUTROPHILS # (AUTO) 6.6 10^3/uL (1.5-6.6); NEUTROPHILS % (AUTO) 62.3 %; PLT - PLATELET COUNT 295 10^3/uL (130-450); RED BLOOD COUNT 4.31 10^6/uL (4.20-5.40); RED CELL DISTRIBUTION WIDTH 14.6 % (12.0-15.0); WHITE BLOOD COUNT 10.7 x10^3/uL (4.8-10.8)
[2021-08-17] MEDS: PANTOPRAZOLE 40 MG VIAL IVP SCH (05:44)
[2021-08-17 05:51] LABS: ALBUMIN 3.4 g/dL (3.2-5.5); ALBUMIN/GLOBULIN RATIO 1.1 (1.0-2.2); BILIRUBIN,TOTAL 0.6 mg/dL (0.2-1.0); CALCIUM 8.1 mg/dL (8.5-10.3); CREATININE 0.6 mg/dL (0.4-1.0); POTASSIUM 3.4 mmol/L (3.5-5.0); TOTAL PROTEIN 6.4 g/dL (6.7-8.2)
[2021-08-17] MEDS: ENOXAPARIN 40 MG/0.4 ML SYRINGE SUBQ SCH (08:17)
--- NOTE | 2021-08-17 10:53 | PROVIDER PROGRESS NOTE ---
Assessment/Plan - Problem List (1) Small bowel obstruction Assessment/Plan: Has passed flatus and had a BM. No complaint of abdominal pain. Eager to start diet advance. A: Resolving SBO Hx of lap ventral hernia repair in the 90s. No recurrent hernia on CT exam on admission. P: Clear liquid diet - Current Meds Current Meds: Current Medications Generic Name Dose Route Start Last Admin Trade Name Freq PRN Reason Stop Dose Admin Enoxaparin Sodium 40 mg 08/14/21 09:00 08/17/21 08:17 Enoxaparin 40 Mg/0.4 Ml Syringe SUBQ 40 mg DAILY DYLON Administration Sodium Chloride 1,000 mls @ 100 mls/hr 08/13/21 16:30 08/17/21 01:08 Normal Saline 0.9% IV 100 mls/hr .Q10H DYLON Administration Pantoprazole Sodium 40 mg 08/14/21 07:00 08/17/21 05:44 Pantoprazole 40 Mg Vial IVP 40 mg QDAC DYLON Administration Phenol/Menthol 1 sprays 08/13/21 15:05 08/14/21 02:10 Phenol Throat [place] 177 Ml MM 1 sprays Q2HR PRN Administration Throat Pain Sodium Chloride 10 ml 08/13/21 17:00 08/17/21 01:08 Sodium Chloride Flush 0.9% 10 Ml Syringe IVP Not Given 0100,0900,1700 DYLON Sodium Chloride 10 ml 08/13/21 15:05 08/16/21 07:32 Sodium Chloride Flush 0.9% 10 Ml Syringe IVP 10 ml PRN PRN Administration NEEDED PER PROVIDER ORDERS - Lab Result Fish Bone Diagrams: 08/17/21 05:23 08/17/21 05:23 Subjective - Subjective Patient Reports: Feeling Better Objective Vital Signs: Vital Signs - 24 hr 08/16/21 08/16/21 08/16/21 13:00 15:56 20:10 Temperature 37.3 C 37.4 C 37.2 C Heart Rate [ 57 L 58 L 64 Brachial] Respiratory 16 16 20 Rate Blood Pressure 131/85 H 137/73 H 145/73 H [Left Brachial artery] O2 Saturation 98 95 98 08/17/21 08/17/21 08/17/21 00:04 05:42 08:02 Temperature 37.4 C 37.1 C 36.7 C Heart Rate [ 70 64 71 Brachial] Respiratory 18 18 16 Rate Blood Pressure 124/75 146/76 H 138/70 H [Left Brachial artery] O2 Saturation 95 93 94 Oxygen O2 Source Room air I&O (Last 24 Hrs): Intake and Output Totals x24h 08/15/21 08/16/21 08/17/21 23:59 23:59 23:59 Intake Total 2891.000 3222.666 396.667 Output Total 1550 600 Balance 3707.925 4891.666 396.667 Abdomen: Soft, No tenderness - Results Results: Laboratory Results WBC 10.7 x10^3/uL (4.8-10.8) 08/17/21 05:23 RBC 4.31 10^6/uL (4.20-5.40) 08/17/21 05:23 Hgb 11.9 g/dL (12.0-16.0) L 08/17/21 05:23 Hct 38.0 % (37.0-47.0) 08/17/21 05:23 MCV 88.2 fL (81.0-99.0) 08/17/21 05:23 MCH 27.6 pg (27.0-31.0) 08/17/21 05:23 MCHC 31.3 g/dL (32.0-36.0) L 08/17/21 05:23 RDW 14.6 % (12.0-15.0) 08/17/21 05:23 Plt Count 295 10^3/uL (130-450) 08/17/21 05:23 MPV 9.8 fL (7.9-10.8) 08/17/21 05:23 Neut # (Auto) 6.6 10^3/uL (1.5-6.6) 08/17/21 05:23 Lymph # (Auto) 2.6 10^3/uL (1.5-3.5) 08/17/21 05:23 [place] # (Auto) 1.1 10^3/uL (0.0-1.0) H 08/17/21 05:23 Eos # (Auto) 0.3 10^3/uL (0.0-0.7) 08/17/21 05:23 Baso # (Auto) 0.1 10^3/uL (0.0-0.1) 08/17/21 05:23 Absolute Nucleated RBC 0.00 x10^3/uL 08/17/21 05:23 Nucleated RBC % 0.0 /100WBC 08/17/21 05:23 Sodium 139 mmol/L (135-145) 08/17/21 05:23 Potassium 3.4 mmol/L (3.5-5.0) L 08/17/21 05:23 Chloride 103 mmol/L (101-111) 08/17/21 05:23 Carbon Dioxide 27 mmol/L (21-32) 08/17/21 05:23 Anion Gap 9.0 (6-13) 08/17/21 05:23 BUN 7 mg/dL (6-20) 08/17/21 05:23 Creatinine 0.6 mg/dL (0.4-1.0) 08/17/21 05:23 Estimated GFR (MDRD) 105 (>89) 08/17/21 05:23 Glucose 93 mg/dL (70-100) 08/17/21 05:23 Estimat Average Glucose 123 mg/dL (70-100) H 08/16/21 07:29 Hemoglobin A1c % 5.9 % (4.27-6.07) 08/16/21 07:29 Calcium 8.1 mg/dL (8.5-10.3) L 08/17/21 05:23 Total Bilirubin 0.6 mg/dL (0.2-1.0) 08/17/21 05:23 AST 20 IU/L (10-42) 08/17/21 05:23 ALT 18 IU/L (10-60) 08/17/21 05:23 Alkaline Phosphatase 61 IU/L (42-121) 08/17/21 05:23 Total Protein 6.4 g/dL (6.7-8.2) L 08/17/21 05:23 Albumin 3.4 g/dL (3.2-5.5) 08/17/21 05:23 Globulin 3.0 g/dL (2.1-4.2) 08/17/21 05:23 Albumin/Globulin Ratio 1.1 (1.0-2.2) 08/17/21 05:23 Lipase 30 U/L (22-51) 08/13/21 11:40 TSH 3.00 uIU/mL (0.34-5.60) 08/13/21 11:40 Urine Color YELLOW 08/13/21 19:20 Urine Clarity CLEAR (CLEAR) 08/13/21 19:20 Urine pH 6.5 PH (5.0-7.5) 08/13/21 19:20 Ur Specific [place] 1.015 (1.002-1.030) 08/13/21 19:20 Urine Protein NEGATIVE mg/dL (NEGATIVE) 08/13/21 19:20 Urine Glucose (UA) NEGATIVE mg/dL (NEGATIVE) 08/13/21 19:20 Urine Ketones NEGATIVE mg/dL (NEGATIVE) 08/13/21 19:20 Urine Occult Blood NEGATIVE (NEGATIVE) 08/13/21 19:20 Urine Nitrite NEGATIVE (NEGATIVE) 08/13/21 19:20 Urine Bilirubin NEGATIVE (NEGATIVE) 08/13/21 19:20 Urine Urobilinogen 0.2 (NORMAL) E.U./dL (NORMAL) 08/13/21 19:20 Ur Leukocyte Esterase NEGATIVE (NEGATIVE) 08/13/21 19:20 Urine RBC 0-5 /HPF (0-5) 08/13/21 12:00 Urine WBC 4-5 /HPF (0-5) 08/13/21 12:00 Ur Squamous Epith Cells MANY Squamous (<= Few) H 08/13/21 12:00 Urine Bacteria Few /HPF (None Seen) 08/13/21 12:00 Urine Mucus Few Strands 08/13/21 12:00 Ur Microscopic Review NOT INDICATED 08/13/21 19:20 Urine Culture Comments NOT INDICATED 08/13/21 19:20 Nasal Adenovirus (PCR) NOT DETECTED 08/13/21 14:29 Nasal B. parapertussis DNA (PCR) NOT DETECTED 08/13/21 14:29 Nasal Coronavir 229E PCR NOT DETECTED 08/13/21 14:29 Nasal Coronavir HKU1 PCR NOT DETECTED 08/13/21 14:29 Nasal Coronavir NL63 PCR NOT DETECTED 08/13/21 14:29 Nasal Coronavir OC43 PCR NOT DETECTED 08/13/21 14:29 Nasal Enterovir/Rhinovir PCR NOT DETECTED 08/13/21 14:29 Nasal Influenza B PCR NOT DETECTED 08/13/21 14:29 Nasal Influenza A PCR NOT DETECTED 08/13/21 14:29 Nasal Parainfluen 1 PCR NOT DETECTED 08/13/21 14:29 Nasal Parainfluen 2 PCR NOT DETECTED 08/13/21 14:29 Nasal Parainfluen 3 PCR NOT DETECTED 08/13/21 14:29 Nasal Parainfluen 4 PCR NOT DETECTED 08/13/21 14:29 Nasal RSV (PCR) NOT DETECTED 08/13/21 14:29 Nasal B.pertussis DNA PCR NOT DETECTED 08/13/21 14:29 Nasal C.pneumoniae (PCR) NOT DETECTED 08/13/21 14:29 [place] Human Metapneumo PCR NOT DETECTED 08/13/21 14:29 Nasal M.pneumoniae (PCR) NOT DETECTED 08/13/21 14:29 Nasal SARS-CoV-2 (PCR) NOT DETECTED 08/13/21 14:29 ABX Reporting Has patient been on IV antibiotics over the past 48 hours?: No
[2021-08-18] MEDS: SODIUM CHLORIDE FLUSH 0.9% 10 ML SYRINGE IVP SCH ×2 (00:07→08:04)
[2021-08-18 06:27] LABS: BASOPHILS # (AUTO) 0.1 10^3/uL (0.0-0.1); BASOPHILS % (AUTO) 0.9 %; EOSINOPHILS # (AUTO) 0.3 10^3/uL (0.0-0.7); EOSINOPHILS % (AUTO) 3.9 %; HCT - HEMATOCRIT 39.2 % (37.0-47.0); HGB - HEMOGLOBIN 12.4 g/dL (12.0-16.0); LYMPHOCYTES # (AUTO) 2.7 10^3/uL (1.5-3.5); LYMPHOCYTES % (AUTO) 30.7 %; MEAN CORPUSCULAR HGB CONC 31.6 g/dL (32.0-36.0); MEAN CORPUSCULAR VOLUME 88.5 fL (81.0-99.0); MEAN PLATELET VOLUME 9.7 fL (7.9-10.8); MONOCYTES # (AUTO) 0.9 10^3/uL (0.0-1.0); MONOCYTES % (AUTO) 10.9 %; NEUTROPHILS # (AUTO) 4.6 10^3/uL (1.5-6.6); NEUTROPHILS % (AUTO) 53.3 %; PLT - PLATELET COUNT 295 10^3/uL (130-450); RED BLOOD COUNT 4.43 10^6/uL (4.20-5.40); RED CELL DISTRIBUTION WIDTH 14.7 % (12.0-15.0); WHITE BLOOD COUNT 8.6 x10^3/uL (4.8-10.8)
[2021-08-18 06:35] LABS: ALBUMIN 3.6 g/dL (3.2-5.5); ALBUMIN/GLOBULIN RATIO 1.1 (1.0-2.2); BILIRUBIN,TOTAL 0.6 mg/dL (0.2-1.0); CALCIUM 8.5 mg/dL (8.5-10.3); CREATININE 0.7 mg/dL (0.4-1.0); POTASSIUM 3.6 mmol/L (3.5-5.0)
[2021-08-18] MEDS: SODIUM CHLORIDE 0.9% 1,000 ML IV SCH (06:40)
[2021-08-18] MEDS: PANTOPRAZOLE 40 MG VIAL IVP SCH (06:40)
[2021-08-18] MEDS: ENOXAPARIN 40 MG/0.4 ML SYRINGE SUBQ SCH (08:03)
--- NOTE | 2021-08-18 08:34 | Discharge Plan ---
Discharge Plan Problem Reviewed?: Yes Disposition: Home, Self Care Condition: Good Diet: Soft (Low residue diet for next two weeks) Activity Restrictions: No lifting over 15# Shower Restrictions: No No Smoking: If you smoke, Please STOP! Call for help.
--- NOTE | 2021-08-18 08:37 | DISCHARGE SUMMARY ---
Discharge Summary Admit Date: 08/13/21 Discharge Date: 08/18/21 Discharging Provider: Percy Code Status: Attempt Resuscitation Condition at Discharge: Good Discharge Disposition: 01 Home, Self Care - DIAGNOSES Admission Diagnoses: Small Bowel obstruction Discharge Diagnoses with Status of Each Condition: Small bowel obstruction resolved with conservative management. Tolerating full liquid diet at discharge, having BMs. - HPI History of Present Illness: 51 yo female admitted with SBO. Transition point seen in anterior mid abdomen near site of laparoscopic ventral hernia repair over 20 years ago. NG placed and obstruction resolved clinically. After NG out patient tolerated clears with advanve to full liquid diet. - HOSPITAL COURSE Hospital Course: See above. - ALLERGIES Allergies/Adverse Reactions: Allergies Allergy/AdvReac Type Severity Reaction Status Date / Time No Known Drug Allergies Allergy Verified 08/13/21 11:29 - MEDICATIONS Home Medications: Ambulatory Orders Medication Instructions Recorded Confirmed Cholecalciferol (Vitamin D3) 50 mcg PO DAILY 08/14/21 08/14/21 [Vitamin D3] Citalopram Hydrobromide [Celexa] 20 mg PO DAILY 08/14/21 08/14/21 - PHYSICAL EXAM AT DISCHARGE General Appearance: positive: No acute distress Eyes Bilateral: positive: Normal inspection ENT: positive: ENT inspection nml Neck: positive: Nml inspection Respiratory: positive: No respiratory distress Cardiovascular: positive: Regular rate & rhythm Abdomen: positive: Non-tender, Other (obese) - LABS Result Diagrams: 08/18/21 06:00 08/18/21 06:00 - DIAGNOSTIC IMAGING Diagnostic Imaging Results: Final report reviewed - QUALITY (Female Hip Fx Only) Was patient sent home on osteoporosis medication?: No - FOLLOW UP Follow Up: With Dr Ruffin in [facility] clinic to arrange follow up for patient at a specialty hernia center. - TIME SPENT Time Spent in Discharge (Minutes): 20
[2021-08-18 11:47] VITALS: BP 122/73
== END 2021-08-18 14:40 | disposition home or self-care (01) | DRG 389 ==
LOC: ED 11:17 → MS2 15:05 → OBSVTOIN 16:29
PROVIDERS: ADMIT Surgery; ATTEND Surgery
DX: K56.609 Unspecified intestinal obstruction, unspecified as to partial versus complete obstruction (principal); Z68.42 Body mass index [BMI] 45.0-49.9, adult; E66.9 Obesity, unspecified; D72.829 Elevated white blood cell count, unspecified; Z20.822 Contact with and (suspected) exposure to COVID-19; Z98.890 Other specified postprocedural states
CPT/HCPCS: 0202U; 36415; 71045; 74177; 80053; 81001; 81003; 83036; 83690; 84443; 85025; 96374; 96375; 96376; 99284; 99285; A9270; J1170; J1650; Q9967; 87086

== ENCOUNTER 2023-01-28 08:42 | Outpatient (CLI) | payer OTHER ==
[2023-01-28 09:22] LABS: BASOPHILS # (AUTO) 0.1 10^3/uL (0.0-0.1); BASOPHILS % (AUTO) 0.8 %; EOSINOPHILS # (AUTO) 0.3 10^3/uL (0.0-0.7); EOSINOPHILS % (AUTO) 3.4 %; HCT - HEMATOCRIT 42.1 % (37.0-47.0); HGB - HEMOGLOBIN 13.2 g/dL (12.0-16.0); LYMPHOCYTES % (AUTO) 20.3 %; MEAN CORPUSCULAR HEMOGLOBIN 28.2 pg (27.0-31.0); MEAN CORPUSCULAR HGB CONC 31.4 g/dL (32.0-36.0); MEAN PLATELET VOLUME 10.2 fL (7.9-10.8); MONOCYTES # (AUTO) 0.7 10^3/uL (0.0-1.0); MONOCYTES % (AUTO) 7.3 %; NEUTROPHILS # (AUTO) 6.7 10^3/uL (1.5-6.6); PLT - PLATELET COUNT 267 10^3/uL (130-450); RED BLOOD COUNT 4.68 10^6/uL (4.20-5.40); RED CELL DISTRIBUTION WIDTH 14.7 % (12.0-15.0); WHITE BLOOD COUNT 9.8 x10^3/uL (4.8-10.8)
[2023-01-28 09:40] LABS: ALBUMIN 3.9 g/dL (3.2-5.5); ALKALINE PHOSPHATASE 75 IU/L (42-121); ALT ALANINE AMINOTRANSFERASE 16 IU/L (10-60); AST ASPARTATE AMINOTRANSFERASE 20 IU/L (10-42); BILIRUBIN,TOTAL 0.6 mg/dL (0.2-1.0); BUN - BLOOD UREA NITROGEN 17 mg/dL (6-20); CALCIUM 8.6 mg/dL (8.5-10.3); CARBON DIOXIDE - CO2 29 mmol/L (21-32); CHLORIDE 105 mmol/L (101-111); CHOL/HDL RATIO 4.3 (<4.4); CHOLESTEROL 200 mg/dL; CREATININE 0.8 mg/dL (0.4-1.0); CRP - C-REACTIVE PROTEIN 2.7 mg/dL (0-1.0); GFR - MDRD 75 (>89); GLUCOSE 106 mg/dL (70-100); HDL CHOLESTEROL 47 mg/dL; LDL CHOLESTEROL,CALCULATED 131 mg/dL; LDL/HDL RATIO 2.8 (<4.4); POTASSIUM 4.1 mmol/L (3.5-5.0); SODIUM 140 mmol/L (135-145); TOTAL PROTEIN 7.7 g/dL (6.7-8.2); TRIGLYCERIDES 108 mg/dL; VLDL CHOLESTEROL 22 mg/dL
[2023-01-28 09:53] LABS: THYROID STIMULATING HORMONE 1.57 uIU/mL (0.34-5.60)
[2023-01-28 10:02] LABS: ESTIMATED AVERAGE GLUCOSE 123 mg/dL (70-100); HEMOGLOBIN A1c% 5.9 % (4.27-6.07)
[2023-01-28 10:21] LABS: FOLLICLE STIMULATING HORMONE 24.35 mIU/mL
[2023-01-28 11:46] LABS: RHEUMATOID FACTOR NEGATIVE (Negative)
[2023-01-29 19:07] LABS: CYCLIC CITRULLINATED PEP IGG/A 7 units (0-19)
[2023-01-29 20:08] LABS: ANTI-DNA (DS) AB QN <1 IU/mL (0-9)
[2023-01-30 15:09] LABS: ANTINUCLEAR ANTIBODIES IFA Negative (.)
== END 2023-01-28 08:43 | disposition home or self-care (01) ==
LOC: LAB 08:42
PROVIDERS: ATTEND Physician Assistant
DX: R73.01 Impaired fasting glucose (principal); Z13.9 Encounter for screening, unspecified; N93.9 Abnormal uterine and vaginal bleeding, unspecified; M25.50 Pain in unspecified joint
CPT/HCPCS: 36415; 80053; 80061; 83001; 83036; 83721; 84443; 85025; 85651; 86038; 86140; 86200; 86225; 86430

== ENCOUNTER 2023-02-04 10:20 | Outpatient (CLI) | payer OTHER ==
--- NOTE | 2023-02-17 09:52 | Mammography Report ---
BILATERAL DIGITAL SCREENING MAMMOGRAM 3D/2D: 02/04/2023 CLINICAL: Routine screening. No prior exams were available for comparison. There are scattered areas of fibroglandular density in both breasts (category b / 25%-50% glandular t issue). No significant masses, calcifications, or other findings are seen in either breast. IMPRESSION: NEGATIVE There is no mammographic evidence of malignancy. A 1 year screening mammogram is recommended. Based on the Tyrer Cuzick model (a risk assessment model) the patients lifetime risk is 9.0% and her 10 year risk is 2.6%. According to the ACR, ACS, and NCCN guidelines, an annual breast MRI exam rush g with mammogram is recommended if the patients lifetime risk is 20% or greater. This exam was interpreted at Station ID: [id number]. NOTE: For mammograms, a report in lay terms will be sent to the patient. Approximately 15% of breast malignancies will not be visualized mammographically. In the management of a palpable breast mass, a negative mammogram must not discourage biopsy of a clinically suspicious lesion. Electronically Signed By: Grant loja/ashanti:02/14/2023 17:14:37 letter sent: No_Letter ACR BI-RADS Category 1: Negative 3341F PARENCHYMAL PATTERN: (A) - The breast(s) demonstrate(s) scattered fibroglandular densities. BI-RADS CATEGORY: (1) - 1 Mammogram [id number] 1 year screening LATERALITY: (B)
== END 2023-02-04 10:21 | disposition home or self-care (01) ==
LOC: DI.N 10:20
DX: Z12.31 Encounter for screening mammogram for malignant neoplasm of breast (principal)

== ENCOUNTER 2023-02-04 10:26 | Outpatient (CLI) | payer OTHER ==
--- NOTE | 2023-02-04 16:53 | XRAY Report ---
PROCEDURE: Knee 4 View LT INDICATIONS: KNEE PAIN LEFT TECHNIQUE: 4 views of the left knee(s) were acquired. COMPARISON: None. FINDINGS: Bones: No fractures or dislocations. No suspicious bony lesions. There is moderate tricompartment al periarticular osteophyte formation. Soft tissues: No knee joint effusion. No suspicious soft tissue calcifications or masses. IMPRESSION: Osteoarthritis. No acute fracture. No osseous lesion. If symptoms and/or clinical suspicion for patho logy continue, further assessment with repeat plain films, or advanced imaging (e.g., CT, MRI, or bon e scan) is recommended for further assessment. Reviewed by: Yanira Lynch MD on 02/04/2023 4:52 PM PDT Approved by: Yanira Lynch MD on 02/04/2023 4:52 PM PDT Station ID: [id number]
== END 2023-02-04 10:27 | disposition home or self-care (01) ==
LOC: DI.N 10:26
PROVIDERS: ATTEND Physician Assistant
DX: M17.12 Unilateral primary osteoarthritis, left knee (principal)

== ENCOUNTER 2023-04-10 09:21 | Outpatient (CLI) | payer OTHER ==
--- NOTE | 2023-04-10 11:37 | XRAY Report ---
PROCEDURE: Hand 3 View RT INDICATIONS: THUMB PAIN, RIGHT TECHNIQUE: 3 views of the hand acquired. COMPARISON: None. FINDINGS: Bones: No acute fractures or dislocations. No suspicious bony lesions. Moderate degenerative change s at the 1st carpometacarpal joint with joint space narrowing, subchondral sclerosis, and marginal os teophytes. Mild degenerative changes in the interphalangeal joints of the fingers. Soft tissues: No suspicious soft tissue calcifications or masses. IMPRESSION: Moderate 1st carpometacarpal joint osteoarthrosis. Reviewed by: Michael Hale MD on 04/10/2023 11:35 AM PDT Approved by: Michael Hale MD on 04/10/2023 11:35 AM PDT Station ID: [id number]
[2023-04-11 06:10] LABS: HBsAG SCREEN Negative (Negative); HEPATITIS B SURFACE AB QUANT 28.2 mIU/mL (Immunity>9.9)
[2023-04-12 01:08] LABS: HCV AB Non Reactive (Non Reactive)
== END 2023-04-10 09:22 | disposition home or self-care (01) ==
LOC: DI 09:21
PROVIDERS: ATTEND Physician Assistant
DX: M18.11 Unilateral primary osteoarthritis of first carpometacarpal joint, right hand (principal); L20.89 Other atopic dermatitis; L82.1 Other seborrheic keratosis; L91.8 Other hypertrophic disorders of the skin; L53.8 Other specified erythematous conditions
CPT/HCPCS: 36415; 81599; 86317; 86704; 86803; 87340

== ENCOUNTER 2024-05-10 13:41 | Outpatient (CLI) | payer OTHER ==
[2024-05-10 14:19] LABS: BASOPHILS # (AUTO) 0.1 10^3/uL (0.0-0.1); BASOPHILS % (AUTO) 0.9 %; EOSINOPHILS # (AUTO) 0.3 10^3/uL (0.0-0.7); EOSINOPHILS % (AUTO) 2.8 %; HCT - HEMATOCRIT 45.1 % (37.0-47.0); HGB - HEMOGLOBIN 13.9 g/dL (12.0-16.0); LYMPHOCYTES # (AUTO) 3.9 10^3/uL (1.5-3.5); LYMPHOCYTES % (AUTO) 35.8 %; MEAN CORPUSCULAR HEMOGLOBIN 27.8 pg (27.0-31.0); MEAN CORPUSCULAR HGB CONC 30.8 g/dL (32.0-36.0); MEAN CORPUSCULAR VOLUME 90.2 fL (81.0-99.0); MEAN PLATELET VOLUME 10.1 fL (7.9-10.8); MONOCYTES # (AUTO) 1.1 10^3/uL (0.0-1.0); MONOCYTES % (AUTO) 10.2 %; NEUTROPHILS # (AUTO) 5.4 10^3/uL (1.5-6.6); NEUTROPHILS % (AUTO) 50.1 %; PLT - PLATELET COUNT 349 10^3/uL (130-450); RED CELL DISTRIBUTION WIDTH 14.7 % (12.0-15.0); WHITE BLOOD COUNT 10.9 x10^3/uL (4.8-10.8)
[2024-05-10 14:22] LABS: ESTIMATED AVERAGE GLUCOSE 120 mg/dL (70-100); HEMOGLOBIN A1c% 5.8 % (4.27-6.07)
[2024-05-10 14:25] LABS: ALBUMIN 4.4 g/dL (3.2-5.5); ALBUMIN/GLOBULIN RATIO 1.4 (1.0-2.2); ALKALINE PHOSPHATASE 81 IU/L (42-121); ALT ALANINE AMINOTRANSFERASE 24 IU/L (10-60); AST ASPARTATE AMINOTRANSFERASE 19 IU/L (10-42); BILIRUBIN,TOTAL 0.5 mg/dL (0.2-1.0); BUN - BLOOD UREA NITROGEN 16 mg/dL (6-20); CALCIUM 9.9 mg/dL (8.5-10.3); CARBON DIOXIDE - CO2 30 mmol/L (21-32); CHLORIDE 101 mmol/L (101-111); CHOL/HDL RATIO 3.2 (<4.4); CHOLESTEROL 187 mg/dL; CREATININE 0.7 mg/dL (0.6-1.3); GFR - MDRD 87 (>89); GLUCOSE 84 mg/dL (74-104); HDL CHOLESTEROL 58 mg/dL; LDL CHOLESTEROL,CALCULATED 106 mg/dL; LDL/HDL RATIO 1.8 (<4.4); POTASSIUM 4.2 mmol/L (3.5-4.5); SODIUM 137 mmol/L (135-145); TOTAL PROTEIN 7.6 g/dL (6.4-8.9); TRIGLYCERIDES 113 mg/dL; VLDL CHOLESTEROL 23 mg/dL
[2024-05-10 14:40] LABS: THYROID STIMULATING HORMONE 2.52 uIU/mL (0.34-5.60)
== END 2024-05-10 13:42 | disposition home or self-care (01) ==
LOC: LAB 13:41
PROVIDERS: ATTEND Nurse Practitioner
DX: E78.5 Hyperlipidemia, unspecified (principal); R73.01 Impaired fasting glucose; R53.83 Other fatigue; R06.02 Shortness of breath; Z51.81 Encounter for therapeutic drug level monitoring
CPT/HCPCS: 36415; 80053; 80061; 83036; 83721; 84443; 85025; 85379